=== PATIENT | male | born 1965 | race Caucasian/White ===

== ENCOUNTER 2016-10-27 20:47 | Emergency (ER) | payer SELFPAY ==
[~2016-10-27] VITALS: Ht 177.8 cm; Wt 70.3 kg
[2016-10-27 20:48] VITALS: BP 122/80
[2016-10-27] MEDS ORDERED: VITA1CAP4 PO (21:04)
[2016-10-27] MEDS ORDERED: OMEP20CA3 (21:04)
[2016-10-27] MEDS ORDERED: METO-346 (21:04)
[2016-10-27] MEDS ORDERED: TRAM50TA2 (21:04)
[2016-10-27] MEDS ORDERED: MAG400TA (21:04)
[2016-10-27] MEDS ORDERED: MELO15TA4 (21:04)
[2016-10-27] MEDS ORDERED: GLIP5TAB15 (21:04)
[2016-10-27] MEDS ORDERED: METF500T (21:04)
[2016-10-27] MEDS ORDERED: VITA500C24 PO (21:04)
== END 2016-10-27 22:00 | disposition home or self-care (01) ==
LOC: M ED 21:50
DX: S46.111A Strain of muscle, fascia and tendon of long head of biceps, right arm, initial encounter (principal); X50.0XXA Overexertion from strenuous movement or load, initial encounter; Y92.096 Garden or yard of other non-institutional residence as the place of occurrence of the external cause; Y93.89 Activity, other specified; Y99.9 Unspecified external cause status